=== PATIENT | female | born 1995 | race Caucasian/White ===

== ENCOUNTER 2020-03-28 09:35 | Inpatient (IN) | payer SELFPAY, OTHER ==
[2020-03-28] VITALS (40 sets, daily range): BP systolic 98–136; BP diastolic 55–81; PULSE 57–82; TEMP 36.8–37.2; O2SAT 83–100; BMI 34.1
[2020-03-28] MEDS: Lactated Ringers 1,000 ML 200 ML IV ×3 (09:55→19:20)
[2020-03-28] MEDS: fentaNYL 100 MCG/2 ML Ampul IV (10:07)
[2020-03-28 10:22] LABS: Absolute Neutrophil Count 13.7 X10^3/uL (2.0-7.7); Basophil# 0.02 X10^3/uL; Basophil% 0.1 % (0-1); Hematocrit 37.2 % (37-47); Hemoglobin 13.1 g/dL (12.0-15.0); Lymphocyte % 5.8 % (19-41); Mean Corp Hgb Conc 35.2 g/dL (32-36); Mean Corpuscular Volume 85.3 fL (81-99); Monocyte# 0.85 X10^3/uL; Monocyte% 5.4 % (0-10); NRBC Flagged by Analyzer 0 % (0-5); Neutrophil # 13.73 X10^3/uL (2.7-7.7); Neutrophil % 87.9 % (47-70); Platelet Count 159 K/mm3 (150-450); RBC Distribution Width CV 12.1 % (11.6-14.6); RBC Distribution Width SD 37.7 fl (35.1-43.9); Red Blood Count 4.36 M/mm3 (4.2-5.4); White Blood Count 15.6 K/mm3 (4.4-11.0)
[2020-03-28 10:35] LABS: Amphetamine Urine VISTA NEGATIVE (<1000 ng/mL); Barbiturate Urine VISTA NEGATIVE (< 200 ng/mL); Benzodiazepine Urine VISTA NEGATIVE (< 200 ng/mL); Cocaine Urine VISTA NEGATIVE (< 300 ng/mL); Ecstacy Urine VISTA NEGATIVE (< 500 ng/mL); Methadone Urine VISTA NEGATIVE (< 300 ng/mL); PCP Urine VISTA NEGATIVE (< 25 ng/mL); THC Urine VISTA NEGATIVE (< 50 ng/mL); Vista UDS pH Range 6
[2020-03-28 10:57] LABS: Rubella IgG Reactive (Nonreactive)
[2020-03-28] MEDS: Lactated Ringers 500 ML 999 ML IV (11:00)
[2020-03-28 11:20] LABS: Bacteria 0 SEEN /hpf (None Seen); Mucous, Urine 0 SEEN /hpf (<or=2+); Red Blood Cells-Urine 0 SEEN /hpf (0-5)
[2020-03-28 11:22] LABS: Color, Urine Yellow (Yellow); Glucose, Dipstick Normal (Normal); Ketone-Dipstick Negative (Negative); Leukocyte Esterase-Dipstick 500 /ul (Negative); Nitrite-Dipstick Negative (Negative); Occult Blood-Urine 250 /ul (Negative); Protein-Dipstick Negative (Negative); Specific Gravity, Urine 1.005 (1.002-1.030); Urine Bilirubin Dipstick Negative (Negative); Urine Clarity Clear (Clear); Urine Urobilinogen Normal (Normal)
[2020-03-28 11:29] LABS: Squamous Epithelial Cells - UA 5-10 SEEN /hpf (5-10); White Blood Cells 10-25 SEEN /hpf (0-5)
[2020-03-28 11:45] LABS: HIV - WCH Non-Reactive (Nonreactive); Hepatitis B Surface Antigen Non-Reactive (Nonreactive); Hepatitis C Antibody Non-Reactive (Nonreactive)
[2020-03-28 12:02] LABS: Group B Strep DNA By PCR POSITIVE (Negative); Probe Check PASS
[2020-03-28] MEDS: fentaNYL-bupivacaine (epidural) 100 ML BAG EPIDURAL ×3 (12:52→21:28)
--- NOTE | 2020-03-28 13:19 | HP.PCM_ITS ---
History Date of Admission: 03/28/20 Final JACK: 03/16/20 Gestational age: 41 Weeks and 5 Days History of this : This is a 24 year-old, @ 41 5/7 weeks per her report presents c/o ctxs since yesterday. Does not think her water broke. Was taken care of by a lily bragg and was at a birthing center. However, became exhausted and labor was not progressing so arrived here for evaluation. States she was given 2 due dates, one of 03/07 then 03/16/2020. Reports no complications during . Denies medical problems. Allergies No Known Allergies Allergy (Verified 03/28/20 09:57) Home Medications: Home Medications Herbal Drugs 03/28/20 Smoking Status: Former smoker Alcohol: None Number of Fetus(es): 1 History Past Pregnancies: Past Pregnancies Delivery Date Name GA/ Weeks Outcome Route Wt Infant Sex Labor Length Anesthesia Delivery Location Provider FOB Expected Infant Delivery Method: Spontaneous Vaginal Review of Systems Constitutional: Denies: Chills, Fever Eyes: Denies: Blurred vision Cardiovascular: Denies: Chest Pain Respiratory: Denies: Cough Gastrointestinal: Denies: Diarrhea, Nausea, Vomiting Skin: Denies: Rash Neurological: Denies: Blurred vision, Change in Speech Hematologic/ Lymphatic: Denies: Anemia, Hx of blood clot Physical Exam Vitals: Vital Signs Pulse BP Pulse Ox 64 117/62 98 03/28/20 13:08 03/28/20 13:08 03/28/20 13:08 General: Alert, Cooperative, No apparent distress Cardiovascular: Regular rate Lungs: Normal air movement Abdomen: Soft, Non Tender, Non-Distended, Appropriate for Gestational Age Extremities:: Other - edema 1+ Neurological: Neuro grossly intact [facility]: Normal external genitalia Estimated gestational size: Appropriate for gestational size Cervix Dilation (cm): 5 - AROM w/ return of small amount of clear fluid Station: 0 Effacement (%): 90 Assessment/Plan This is a 24 year-old, @ 41 5/7 weeks reported by her. In labor. EFW is approx 4500 gm clinically. Pelvis is clinically adequate to expect vaginal delivery. Epidural. Patient agrees to AROM. May need pitocin augmentation. GBS +, prophylaxis ordered. Other labs ordered.
[2020-03-28 13:22] LABS: Chlamydia Trachomatis by PCR Negative (Negative); Neisserai gonorrhoeae by PCR Negative (Negative); Probe Check PASS; Sample Adequacy Control PASS; Specimen Processing Control PASS
--- NOTE | 2020-03-28 13:27 | NURSING ---
The RN in process of starting atb for positive GBS status. Pt states she changed her mind and now is refusing atb treatment for GBS status. This RN explained length of stay for infant who has not been treated in labor. Pt still refuses atb.
[2020-03-28] MEDS: Oxytocin 30 units/NS 500 ml 30 UNITS/500 ML IV.SOLN IV (18:11)
[2020-03-28] MEDS: DiphenhydrAMINE 50 MG/ML Syringe 25 MG IV (20:40)
[2020-03-28] MEDS: 0.9% Saline Lock 10 ML Syringe IV (20:40)
[2020-03-29] VITALS (58 sets, daily range): BP systolic 99–141; BP diastolic 53–73; PULSE 66–166; RESP 16–18; TEMP 36.6–39.3; O2SAT 95–100
--- NOTE | 2020-03-29 | PLAC_PTH ---
PATIENT: TUNG HONEYCUTT LOC: [facility] U#:[id number] AGE/SX: 24/F ROOM: WP009 RE03/28/[address]: Dr. Yamile Monteiro DO : 1995 BED: 1 DIS: 03/30/2020 SPEC #: [id number] RECD: 03/29/20 14:51 STATUS: JOSEPHINE MARK #: [id number] AURELIA: 03/29/20 00:[address]: Yamile Monteiro DEPT: SURGICAL PATHOLOGY RECD BY: Edgar Enamorado ENTERED: 03/30/20 07:40 SP TYPE: PLACENTA OTHR DR: No Primary Care Phys Tissues: Placenta, NOS Procedures: Surgery Specimen Level V HEADER OPERATION: Vaginal delivery PRE-OP DIAGNOSIS: Isolated maternal fever and tachycardia TISSUE SUBMITTED: Placenta MICROSCOPIC DIAGNOSIS Placenta: Placental disc - third trimester placenta (577 gm). - Acute vasculitis of subamniotic blood vessels. Membranes - marked acute chorioamnionitis. Umbilical cord - three blood vessels and marked acute funisitis. LISE:george 03/31/2020 MICROSCOPIC DESCRIPTION Slides are reviewed. GROSS DESCRIPTION SPECIMEN: PLACENTA / CLINICAL INFORMATION: A. Weight: 3.85 kg B. Gestational Age: 41 weeks C. Sex: Male PLACENTAL WEIGHT (POST FIXATION): 577 gm PLACENTAL DIMENSIONS: 21 x 19 x 3.5 cm PLACENTAL SHAPE: Usual ovoid PLACENTAL WEIGHT FOR GESTATIONAL AGE: Within 10-99th percentile MEMBRANES - Present A. Insertion: Marginal B. Site of rupture from edge: At edge of placental disc C. Color of membrane: Rosado-godinez D. Abnormalities: None UMBILICAL CORD - Present A. Color: Rosado-godinez B. Insertion: Paracentral C. Length: 31 cm D. Diameter: 1 cm E. Number of vessels: Three F. Abnormalities: None PLACENTAL DISC - Present A. Color of surface: Rosado-godinez B. surface abnormalities: None C. Maternal cotyledons: Intact with minimal tears D. Attached retro placental clot: No clot E. Cut surface: Dark red and spongy F. Lesions: None G. Separate clot: Absent SECTIONS SUBMITTED: 1. Membrane roll 2. Cord, maternal end 3. Cord, end 4. Placental disc, and maternal surfaces 5. Placental disc, and maternal surfaces 6. Placental disc, and maternal surfaces SJ:george 03/30/2020 TC:2 CPT: 29483
[2020-03-29] MEDS: Lactated Ringers 1,000 ML 200 ML IV ×2 (00:03→04:56)
[2020-03-29] MEDS: fentaNYL-bupivacaine (epidural) 100 ML BAG EPIDURAL ×2 (01:58→06:28)
[2020-03-29] MEDS: 0.9% Saline Lock 10 ML Syringe IV ×3 (03:45→22:19)
[2020-03-29] MEDS: Mag Hydrox/Al Hydrox/Simeth 30 ML UDC PO (06:50)
[2020-03-29] MEDS: Lactated Ringers 500 ML 999 ML IV (09:50)
[2020-03-29] MEDS: Oxytocin 30 units/NS 500 ml 30 UNITS/500 ML IV.SOLN 334 UNITS IV (10:43)
--- NOTE | 2020-03-29 11:19 | PCM.OPRPT ---
Problem List (1) Primiparous Status: Acute (2) Positive GBS test Status: Acute (3) tachycardia Status: Acute (4) 41 weeks gestation of Status: Acute Report of Operation Date of Procedure: 03/29/20 Pre-Operative Diagnosis: 41 week gestation, primiparous patient, labor at term, limited care, tachycardia, isolated maternal fever Post-Operative Diagnosis: As above Surgery/Procedure Performed:: VAVD Description of Surgical Findings:: The patient receive care through a geochemistry teacher and had limited care. She presented to the hospital for pain control during labor. Her labor was augmented with pitocin. Her labor was prolonged and she was 7 cm for over 12 hours. She refused a section against our medical advice. She was complete and pushing for almost 4 hours. tachycardia was noted and recurrent variable decelerations with each contraction. Maternal exhaustion was also noted. Normal appearing and intact placenta with 3 VC. Terminal meconium. Type of Anesthesia:: Epidural Special Medications: None Specimen's removed: Placenta Drains: Nguyen Estimated Blood Loss (mL): 150 Description of Procedure: Patient was complete and pushing for almost 4 hours. FHT 180 bpm with recurrent variable decelerations with each contraction. Moderate variability was noted. The patient was exhausted from pushing. Discussed r/b/a to vacuum assisted vaginal delivery. in OA position and +2 station. Nguyen was in place draining bladder. The patient gave verbal consent for a vacuum, and desired to proceed with a VAVD. She declined a section. The vacuum was placed in front of the posterior fontanelle in correct position, and correct position of vacuum was confirmed. With the next contraction the vacuum was inflated and with gentle downward pressure the vacuum popped off once. The vacuum was then reapplied, and with the next contraction the vacuum was inflated. With gentle downward pressure the vacuum was used to bring the baby to +3 station. The vacuum was then exsufflated after the contraction. With the next contraction the vacuum was then re-inflated, and with gentle traction the baby was brought to +4 station. The vacuum was removed after using it for a total of 3 contractions, with a total of 1 pop off. A midline episiotomy was then made with patient consent. Using the Ritgen maneuver the baby's head was then delivered atraumatically. The anterior shoulder was delivered without any force or delay, followed by the posterior shoulder and body. The cord was clamped and cut after a ~30 sec delay. Cord gases and cord blood were obtained. The placenta delivered with fundal massage and was noted to be normal appearing with a 3VC. The uterus was explored x 1 with removal of a small amount of membranes. The patient was noted to be warm. At this point a temperature was checked and she was noted to be febrile. The uterus was explored once more time noting no additional membranes, and the uterus was clear. The fundus was firm and bleeding hemostatic. Next a retal exam was performed. A 2nd degree perineal laceration was noted and repaired in usual fashion with 3-0 Vicryl. A vaginal sweep was performed. Sponge and needle counts were correct. The patient remained febrile. She was started on gentamycin and clindamycin. The patient desired to go home as soon as possible. Discussed concern for endometritis and need for IV antibiotics. Discussed if she does not get proper treatment for an infection this could lead to hemorrhage, sepsis, need for a hysterectomy, and . The patient is agreeable to staying for IV antibiotics. Grafts/Implants Used: None - Complications None - Admit VTE Documentation VTE Present on Admission: No VTE Mechan Device Prophylaxis: None VTE Pharm Prophylaxis ordered?: No Vaginal Delivery Maternal Presentation: Active Labor Method of Induction: Pitocin - used for augmentation Surgery/ Procedure Performed: Vacuum Assisted Vaginal Delivery Type of Anesthesia: Epidural Presentation: Vertex Placental Delivery Description: Expressed Placenta Disposition: [facility] - sent for cultures Cord Vessel Description: 3 Vessels Cord Gases drawn per routine: ABG, VBG Cord Entanglement: None Drain: Nguyen to straight drain (1 minute): 7 (5 minute): 9 Episiotomy Description: 2nd degree Laceration: 2nd degree Medications given after delivery: IV Pitocin Complications: None
[2020-03-29] MEDS: Acetaminophen 500 MG Tablet 1000 MG PO (11:59)
--- NOTE | 2020-03-29 16:30 | NURSING ---
Nguyen cath removed after 10 cc NS removed from balloon. To call when ready to use restroom for assist to bathroom and told of need to measure output.
--- NOTE | 2020-03-29 18:31 | NURSING ---
Addendum entered by Abigail Farrell 03/29/20 18:36: This conversation took place at 1700 03/29/20 Original Note: Talked with Dr. Monteiro regarding creatinine level ordered earlier. RN not aware lab work ordered, and was not drawn prior to gent. given. Lab states they can run off of prior labs drawn. Dr. Monteiro prefers this to be done, and states that if this cannot be done, to draw creatinine with other labs on 03/30. Also requests for CBC and Gent level to be drawn together at 1200 03/30 - do not draw CBC in the am. No need to draw creatinine 03/30 if able to run tonight off of prev. drawn tube.
[2020-03-29] MEDS: Ibuprofen 600 MG Tablet PO (19:53)
[2020-03-30 00:06] VITALS: BP 109/57; PULSE 81; RESP 16; TEMP 36.4
[2020-03-30 01:36] LABS: Rapid Plasmin Reagin (RPR) NONREACTIVE (NONREACTIVE)
[2020-03-30 04:43] VITALS: BP 112/69; PULSE 68; RESP 16; TEMP 36.6
[2020-03-30 05:32] LABS: Creatinine, Serum 0.71 mg/dL (0.55-1.02); EST Glomerular Filtration Rate 108 mL/min (>60); Est Glom Filt Rate - Afr Amer 130 mL/min (>60); Estimated Creatinine Clearance 106.41 ml/min
[2020-03-30] MEDS: 0.9% Saline Lock 10 ML Syringe IV (05:56)
[2020-03-30 09:00] VITALS: BP 113/72; PULSE 76; RESP 18; TEMP 36.1; O2SAT 99
--- NOTE | 2020-03-30 09:00 | PCM.PN.OB ---
Patient Problems: Active and Suspected Problems Primiparous (Acute) Positive GBS test (Acute) tachycardia (Acute) 41 weeks gestation of (Acute) Subjective: Patient feels well. She would like to go home as soon as possible. - Physical Exam Vitals/I&O's: Vital Signs Temp Pulse Resp BP Pulse Ox 97.8 F 68 16 112/69 99 03/30/20 04:43 03/30/20 04:43 03/30/20 04:43 03/30/20 04:43 03/29/20 13:32 Oxygen Delivery Method Room Air Weight: 198 lb 13.711 oz Body Mass Index (BMI) 34.1 Intake and Output for Last 24 Hours 03/28/20 03/29/20 03/30/20 23:59 23:59 23:59 Intake Total 2389.96 / 2889.96 5457.15 / 5457.15 106 / 106 Output Total 1550 / 2350 5425 / 5425 1300 / 1300 Balance 839.96 / 539.96 32.15 / 32.15 -1194 / -1194 General: Alert, Oriented x3 Abdomen: Soft, Non Tender, Non-Distended - ff mid @ umbilicus Extremities: No Calf Tenderness Neurological: Cranial nerves II-XII grossly intact Microbiology Past 72 Hours 03/28/20 10:20 Mucosa - Nose SARS-CoV-2 Antigen (Rapid) - Final Laboratory Results 03/28/20 09:55: RPR NONREACTIVE 03/28/20 09:55: Creatinine 0.71, Estim Creat Clear Calc 106.41, Est GFR (MDRD) Af Amer 130, Est GFR (MDRD) Non-Af 108 03/29/20 14:05: Screen NEGATIVE, Baby's Blood Type A POSITIVE, Baby's IBIS NEGATIVE Current Medications Acetaminophen (Acetaminophen 500 Mg Tablet) 1,000 mg PO Q8H PRN PRN PRN Reason: Pain Score 1-10 Last Admin: 03/29/20 11:59 Dose: 1,000 mg Documented by: Bisacodyl (Bisacodyl 10 Mg Suppository) 10 mg RECTAL UD PRN PRN Reason: If no BM Dibucaine (Dibucaine 30 Gm Tube) 1 applic TOPICAL TID PRN PRN; Protocol PRN Reason: Discomfort Hydrocortisone (Hydrocortisone 2.5% Crm) 1 applic TOPICAL TID PRN PRN; Protocol PRN Reason: Discomfort Clindamycin Phosphate 900 mg/ (Dextrose) 106 mls @ 150 mls/hr IV Q8 SHEILA Last Infusion: 03/30/20 06:55 Dose: Infused Documented by: Ibuprofen (Ibuprofen 600 Mg Tablet) 600 mg PO Q6H PRN PRN PRN Reason: Pain Score 1-10 Last Admin: 03/29/20 19:53 Dose: 600 mg Documented by: Methylergonovine Maleate (Methylergonovine 0.2 Mg/Ml Ampul) 0.2 mg IM X1 PRN PRN Reason: Excess bleeding/uterine atony Ondansetron HCl (Ondansetron 4 Mg/2 Ml Vial) 4 mg IV Q4H PRN PRN PRN Reason: Nausea Senna/Docusate Sodium (Senna/Docusate Sodium 1 Tablet) 1 - 2 tablet PO DAILY PRN PRN PRN Reason: Constipation Simethicone (Simethicone 80 Mg Tablet) 80 mg PO PCHS PRN PRN Reason: Indigestion/Stomach pain Last Admin: 03/29/20 23:39 Dose: 80 mg Documented by: Sodium Chloride (0.9% Saline Lock 10 Ml Syringe) 5 - 15 ml IV UD PRN PRN Reason: SALINE FLUSH Last Admin: 03/30/20 05:56 Dose: 10 ml Documented by: Medical Necessity - Tobacco Use Smoking Status: Former smoker Assessment/Plan All Active Problems 40 weeks gestation of (Acute) Primiparous (Acute) Positive GBS test (Acute) tachycardia (Acute) 41 weeks gestation of (Acute) PPD#1 ID - Patient AF since yesterday & am temp normal. Patient s/p gentamycin & on clindamycin. Recommend patient stay for monitoring throughout the day. Patient & her are thinking about this as they would like to be discharged soon. Await repeat labs & noon today & then will re-evaluate discharge plan. Late addition to note: Patient stated that she planned to leave with or without physician discharge order (around 12 today). RN re-iterated that typically patients are monitored for 24 hours off antibiotics and that we would like to at least monitor her the rest of today & given one additional antibiotic dose. Patient declined this. She was AF for 24 hours & did receive an antibiotic course. Patient was informed by RN to call with any fevers or increased abdominal pain.
--- NOTE | 2020-03-30 09:04 | DCINST_ITS ---
Discharge Diet: No Restrictions Discharge Activity: May Drive, May Shower May resume sexual activity in: 6 weeks Weight Bearing Status: Weight bearing as tolerated Additional Instructions: If you experience any of the following, contact your healthcare provider. * Bleeding that soaks a pad every hour for 2 hours * Fever 100.4 or higher * Unrelieved incision or abdominal pain * Swelling, redness, discharge or bleeding from your incision or episiotomy site * Your incision begins to separate * Problems urinating (including inability to urinate or burning while urinating). * Visual changes * Severe headache * Flu-like symptoms * Pain or redness in one of both of your breasts * Pain, warmth, tenderness or swelling in your legs, especially the calf area * Frequent nausea and vomiting * Symptoms of depression or anxiety If you experience any of the following, call 911 or go to the nearest Emergency Room. * Chest pain * Problems breathing * Seizure activity * Partial or complete paralysis of a body part, slurred speech, weakness or drooping of the face, or a sudden inability to walk or hold your balance Allergies/Adverse Reactions: Allergies No Known Allergies Allergy (Verified 03/28/20 09:57) Medications to take at Discharge Acetaminophen [Tylenol] 1,000 mg PO Q8H PRN PRN tablet 03/30/20 Ibuprofen [Motrin] 600 mg PO Q6H PRN PRN tablet 03/30/20 Primary Care Physician: Care Physician,No Primary [Primary Care Provider] - Test Results: Test results from this visit will be discussed in further detail at your follow- up appointment, if applicable.
--- NOTE | 2020-03-30 09:04 | PCM.DCVAG ---
Discharge Diet: No Restrictions Discharge Activity: May Drive, May Shower May resume sexual activity in: 6 weeks Weight Bearing Status: Weight bearing as tolerated Additional Instructions: If you experience any of the following, contact your healthcare provider. Bleeding that soaks a pad every hour for 2 hours Fever 100.4 or higher Unrelieved incision or abdominal pain Swelling, redness, discharge or bleeding from your incision or episiotomy site Your incision begins to separate Problems urinating (including inability to urinate or burning while urinating). Visual changes Severe headache Flu-like symptoms Pain or redness in one of both of your breasts Pain, warmth, tenderness or swelling in your legs, especially the calf area Frequent nausea and vomiting Symptoms of depression or anxiety If you experience any of the following, call 911 or go to the nearest Emergency Room. Chest pain Problems breathing Seizure activity Partial or complete paralysis of a body part, slurred speech, weakness or drooping of the face, or a sudden inability to walk or hold your balance Allergies/Adverse Reactions: Allergies No Known Allergies Allergy (Verified 03/28/20 09:57) Medications to take at Discharge Acetaminophen [Tylenol] 1,000 mg PO Q8H PRN PRN tablet 03/30/20 Ibuprofen [Motrin] 600 mg PO Q6H PRN PRN tablet 03/30/20 Primary Care Physician: Care Physician,No Primary [Primary Care Provider] - Test Results: Test results from this visit will be discussed in further detail at your follow-up appointment, if applicable.
[2020-03-30] MEDS: Ibuprofen 600 MG Tablet PO (09:11)
[2020-03-30 12:05] VITALS: BP 104/62; PULSE 78; RESP 16; TEMP 36.4; O2SAT 98
[2020-03-30 12:23] LABS: Hematocrit 29.6 % (37-47); Hemoglobin 10.4 g/dL (12.0-15.0); Mean Corp Hgb Conc 35.1 g/dL (32-36); Mean Corpuscular Hgb 31.1 pg (27.0-32.0); Mean Corpuscular Volume 88.6 fL (81-99); Mean Platelet Vol. 12.4 fl (6.2-12.0); Platelet Count 117 K/mm3 (150-450); RBC Distribution Width CV 12.7 % (11.6-14.6); RBC Distribution Width SD 41.1 fl (35.1-43.9); Red Blood Count 3.34 M/mm3 (4.2-5.4); White Blood Count 14.6 K/mm3 (4.4-11.0)
[2020-03-30 13:12] LABS: Gentamicin, Random < 0.2 ug/mL
--- NOTE | 2020-03-30 14:04 | NURSING ---
Pt refusing wheelchair for discharge.
[2020-03-31 13:28] LABS: Pathology Specimen OB SEE PATHOLOGY REPORT
== END 2020-03-30 13:55 | disposition home or self-care (01) | DRG 806 ==
PROVIDERS: Obstetrics & Gynecology; Admitting Provider Obstetrics & Gynecology; Visit Provider Obstetrics & Gynecology
DX: O75.81 Maternal exhaustion complicating labor and delivery (principal); O75.2 Pyrexia during labor, not elsewhere classified; Z37.0 Single live birth; O76 Abnormality in fetal heart rate and rhythm complicating labor and delivery; O70.1 Second degree perineal laceration during delivery; O48.0 Post-term pregnancy; O77.0 Labor and delivery complicated by meconium in amniotic fluid; O99.824 Streptococcus B carrier state complicating childbirth; Z3A.41 41 weeks gestation of pregnancy; Z87.891 Personal history of nicotine dependence
CPT/HCPCS: 59025; 59050; 80170; 80307; 81001; 82565; 85025; 85027; 85461; 86592; 86703; 86762; 86803; 86850; 86900; 86901; 87340; 87426; 87491; 87591; 87653; 88307; 90384; 99218; J7120; A4216; G0378; J2790; J3490